=== PATIENT | male | born 1950 | race African-American/Black ===

== ENCOUNTER 2016-11-04 13:50 | Day surgery (SDC) | payer OTHER ==
[2016-11-01 18:40] VITALS: BMI 34.0
[~2016-11-04 13:50] MED LIST: ceFAZolin SODIUM 1 GM VIAL IVPB ONE
[2016-11-04] MEDS ORDERED: MIDAZOLAM HCL 2 MG/2 ML SINGLE DOSE VIAL ONE ×5 (16:00→16:22)
[2016-11-04] MEDS ORDERED: ceFAZolin SODIUM 1 GM VIAL IVPB ONE (16:15)
[2016-11-04] MEDS ORDERED: PROPOFOL 20 ML ONE (16:19)
[2016-11-04] MEDS ORDERED: LIDOCAINE 1%/EPI 1:100000 (20 ML MULTI DOSE VIAL) INF ONE (16:19)
[2016-11-04] MEDS ORDERED: LIDOCAINE HCL/PF 2% SDV 5ML VIAL ONE (16:19)
[2016-11-04] MEDS ORDERED: LIDOCAINE 1%/EPI 1:100000 (50 ML MULTI DOSE VIAL) ONE ×2 (16:19→16:23)
[2016-11-04] MEDS ORDERED: ceFAZolin SODIUM 1 GM VIAL ONE (16:20)
[2016-11-04] MEDS ORDERED: KETAMINE HCL 200 MG/20 ML VIAL ONE (17:01)
[2016-11-04] MEDS ORDERED: ESMOLOL HCL 10 ML ONE (17:11)
[2016-11-04] MEDS ORDERED: IBUPROFEN 800 MG/8 ML IJ IVPB PRN (17:39)
[2016-11-04] MEDS ORDERED: ACETAMINOPHEN 1000 MG/100 ML VIAL (NON FORMULARY) IVPB ONE (17:40)
[2016-11-04] MEDS ORDERED: DEXTROSE 5%-0.45% SALINE 1,000 ML IV SCH (17:45)
[2016-11-04] MEDS ORDERED: oxyCODONE HCL 5 MG TABLET PO PRN (17:50)
[2016-11-04] MEDS ORDERED: ONDANSETRON 4 MG/2 ML VIAL IVPUSH PRN (17:50)
[2016-11-04] MEDS ORDERED: LACTATED RINGERS SOLUTION 1,000 ML IV SCH (18:00)
[2016-11-04] MEDS ORDERED: ACETAMINOPHEN INJECTION 100 ML IVPB ONE (18:02)
[2016-11-04 18:30] VITALS: TEMP 98.4
[2016-11-04 19:50] VITALS: BP 105/63; PULSE 86
--- NOTE | 2016-11-07 09:34 | OP ---
DATE OF OPERATION: 11/04/2016 PREOPERATIVE DIAGNOSIS: Poorly functioning InterStim with urinary frequency and incontinence. POSTOPERATIVE DIAGNOSIS: Poorly functioning InterStim with urinary frequency and incontinence. PROCEDURE: Removal and replacement of InterStim battery and lead. SURGEON: Joaquín Izquierdo MD ANESTHESIA: Dr. Angulo IV SEDATION: Local. SPECIMEN: Old battery and leads. FINDINGS: S3 stimulation at low amplitude with toe deflection. DESCRIPTION OF PROCEDURE: The patient was brought to the OR, placed on the table in prone position. All pressure points were protected. The back was prepped and draped sterilely. The patient was given IV sedation. The battery pocket on the left side was opened, and the battery was taken out of the incision. The lead was identified, and dimpling of the lead in the midline was seen on the right paramedian. This was also opened with a knife, and the wire was grasped, rolled out, and removed en toto. These were sent off for pathological confirmation. Using fluoroscopy and bony landmarks, the S3 foramen were identified bilaterally, and needles were passed into them. The best response was on the right side with toe deflection and anal idalmis at low amplitude and evidence of calf rotation. This also appeared to be the right spot on the x-ray. Using Seldinger technique, the tract was dilated, and a quadruple lead was passed in through the sacral foramen on the right side under fluoroscopic guidance. Proper positioning of the lead was observed, and the lead was deployed. It was restimulated with good response at low amplitude in all 4 leads. This was then tunneled underneath the skin toward the pre-existing left battery pocket, and after irrigation with bacitracin under water, the battery was connected to the lead. Impedance was checked and noted to be normal. All incisions were closed in 2 layers using 3-0 Vicryl and 4-0 Monocryl. The wounds were dressed. The patient was woken up. Indra [id number]
--- NOTE | 2016-11-08 13:40 | PATH ---
Surgical Pathology Report Patient Name: MISTI STARK Med. Rec. #: [id number] /Age/Gender: 1950 (Age: 66) / M Account: [id number] Location: [facility] Taken: 11/04/2016 Received: 11/07/2016 Reported: 11/08/2016 Physicians: Joaquín Izquierdo M.D. 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 Electronically Signed Diaz cMgregor M.D. Gross Description Received without fixative, labeled "old interstim battery and lead" is a 5 x 4.3 x 0.5 cm richard metallic and clear plastic device labeled "Medtronic Interstim II SN [id number]" with an attached 40 cm in length Metallic electrode. No soft tissue is attached. No sections are submitted. The specimen is for gross examination only. AF/11/07/2016 final/11/07/2016
== END 2016-11-04 19:51 | disposition home or self-care (01) ==
LOC: JASU-SURG 13:50
PROVIDERS: ATTEND Urology
PROC: 0JH70BZ Insertion of Single Array Stimulator Generator into Back Subcutaneous Tissue and Fascia, Open Approach (ICD-10-PCS; 2016-11-04)
PROC: 01PY0MZ Removal of Neurostimulator Lead from Peripheral Nerve, Open Approach (ICD-10-PCS; 2016-11-04)
PROC: 01HY0MZ Insertion of Neurostimulator Lead into Peripheral Nerve, Open Approach (ICD-10-PCS; 2016-11-04)
PROC: 0JPT0MZ Removal of Stimulator Generator from Trunk Subcutaneous Tissue and Fascia, Open Approach (ICD-10-PCS; principal; 2016-11-04 16:00)
DX: T85.113A Breakdown (mechanical) of implanted electronic neurostimulator, generator, initial encounter (principal); N39.46 Mixed incontinence
CPT/HCPCS: 64581; 64590; C1767; C1778; 76000-TC; 88300-TC; 94760

== ENCOUNTER 2017-09-13 20:55 | Emergency (ER) | payer OTHER ==
[2017-09-13 21:24] VITALS: BP 120/74; PULSE 77; TEMP 99.1; BMI 34.1
--- NOTE | 2017-09-13 21:24 | PDOC ---
Rapid Medical Evaluation Time Seen by Provider: 09/13/17 21:20 Medical Evaluation: Allergies Allergy/AdvReac Type Severity Reaction Status Date / Time No Known Drug Allergies Allergy Verified 09/13/17 21:20 09/13/17 21:20 I have performed a brief in-person evaluation of the patient. The patient presents with a chief complaint of : pain in lower back radiating into buttocks and around to right lower abdomen 1- 2 weeks. Patient seen by pmd had xray, cat scan and ultrasound done with negative results. Also had labs that showed abnormal prostate labs. Denies injury fall or heavy lifting Taking acetaminophen with no relief of pain Pertinent physical exam findings. NAD unlabored breathing no mid spinal tenderness pain in right lumbar region I have ordered the following urinalysis, analgesia This patient will proceed to the ED for further evaluation. Discharge Disposition - Referrals Referrals: Trell Lopez MD [Primary Care Provider] - - Patient Instructions - Post Discharge Activity
[2017-09-13] MEDS ORDERED: CYCLOBENZAPRINE HCL 10 MG TABLET (FP) PO ONE (21:25)
[2017-09-13] MEDS ORDERED: ACETAMINOPHEN WITH CODEINE 300MG/30MG TABLET PO ONE (21:25)
[2017-09-13] MEDS ORDERED: ACETAMINOPHEN WITH CODEINE 300MG/30MG TABLET ONE (21:38)
[2017-09-13] MEDS ORDERED: CYCLOBENZAPRINE HCL 10 MG TABLET (FP) ONE (21:38)
[2017-09-13 21:39] LABS: URINE APPEARANCE CLEAR; URINE BILIRUBIN NEGATIVE (<2.0 mg/dL); URINE COLOR LTYELLOW; URINE GLUCOSE (UA) NEGATIVE (NEGATIVE); URINE KETONE NEGATIVE (NEGATIVE); URINE LEUK ESTERASE NEGATIVE (NEGATIVE); URINE NITRITE NEGATIVE (NEGATIVE); URINE UROBILINOGEN NEGATIVE mg/dL (0.2-1.0)
[2017-09-13 21:41] LABS: URINE PROTEIN 1+ (NEGATIVE)
[2017-09-13 21:42] LABS: URINE MUCUS RARE
--- NOTE | 2017-09-13 22:23 | PDOC ---
History of Present Illness - General Chief Complaint: Back Pain Stated Complaint: PAIN Time Seen by Provider: 09/13/17 21:20 - History of Present Illness Initial Comments: This is a 67-year-old male. Presents to the emergency room for evaluation of lower back pain with radiation into the right hip. He has a past medical history significant for hypertension diabetes and asthma as well as dyslipidemia. He describes his pain is achy. His pain is exacerbated with motion relieved with rest and radiation into the groin. He has no loss of bowel or bladder function. He does have a history of BPH possibly prostate cancer he is being worked up by urology and has an upcoming appointment. He has no other associated symptoms besides lower back pain with radiation into the right hip. 09/13/17 22:18 Past History - Past Medical History Allergies/Adverse Reactions: Allergies Allergy/AdvReac Type Severity Reaction Status Date / Time No Known Drug Allergies Allergy Verified 09/13/17 21:20 Home Medications: Ambulatory Orders Amlodipine Besylate [Norvasc -] 10 mg PO DAILY 08/07/12 Exenatide [Byetta] 5 mcg SQ BID 08/07/12 Losartan/Hydrochlorothiazide [Losartan-Hctz 100-25 mg Tab] 1 tab PO DAILY Metoprolol Succinate [Toprol XL -] 50 mg PO DAILY 08/07/12 metFORMIN HCL [Glucophage -] 500 mg PO BID 08/07/12 Aspirin [ASA -] 81 mg PO DAILY 04/08/13 Atorvastatin Ca [Lipitor] 1 tab PO DAILY 09/15/15 Ranitidine [Zantac -] 150 mg PO BID #0 tablet 09/16/15 Amox-Tr/K Cl [Augmentin 875-125mg Tablet -] 1 tab PO BID #14 tablet 11/04/16 Oxycodone HCl/Acetaminophen [Percocet 5-325 mg Tablet -] 1 tab PO Q4H PRN #10 tablet MDD 6 11/04/16 Anemia: No Asthma: No Cancer: No Cardiac Disorders: No CVA: No COPD: No CHF: No Dementia: No Diabetes: Yes GI Disorders: Yes (COLON POLYPS-ADENOMA) Disorders: Yes (BPH) HTN: Yes Hypercholesterolemia: Yes Liver Disease: No Seizures: No Thyroid Disease: No - Surgical History Abdominal Surgery: No Appendectomy: No Cardiac Surgery: No Cholecystectomy: No Lung Surgery: No Neurologic Surgery: No Orthopedic Surgery: No - Suicide/Smoking/Psychosocial Hx Smoking History: Never smoked Have you smoked in the past 12 months: No Information on smoking cessation initiated: No Hx Alcohol Use: Yes Drug/Substance Use Hx: No Substance Use Type: Alcohol Hx Substance Use Treatment: No Review of Systems - Review of Systems Musculoskeletal: Yes: Back Pain All Other Systems: Reviewed and Negative *Physical Exam - Vital Signs Last Vital Signs Temp Pulse Resp BP Pulse Ox 99.1 F 77 18 120/74 100 09/13/17 21:20 09/13/17 21:20 09/13/17 21:20 09/13/17 21:20 09/13/17 21:20 - Physical Exam Comments: GENERAL: The patient is awake, alert, and fully oriented, in no acute distress. HEAD: Normal with no signs of trauma. EYES: Pupils equal, round and reactive to light, extraocular movements intact, sclera anicteric, conjunctiva clear. ENT: Ears normal, nares patent, oropharynx clear without exudates. Moist mucous membranes. NECK: Normal range of motion, supple without lymphadenopathy, JVD, or masses. LUNGS: Breath sounds equal, clear to auscultation bilaterally. No wheezes, and no crackles. HEART: Regular rate and rhythm, normal S1 and S2 without murmur, rub or gallop. ABDOMEN: Soft, nontender, normoactive bowel sounds. No guarding, no rebound. No masses. EXTREMITIES: Normal range of motion, no edema. No clubbing or cyanosis. No cords, erythema, or tenderness. NEUROLOGICAL: Cranial nerves II through XII grossly intact. Normal speech, normal gait. PSYCH: Normal mood, normal affect. SKIN: Warm, Dry, normal turgor, no rashes or lesions noted. The lumbar spine is normal skin color and temperature with palpable right-sided Lumbar musculature spasm. He has a negative straight leg raise test bilaterally full passive range of motion of both hips with discomfort on the right. His discomfort with hip range of motion is in his back. His abdomen is completely benign. I suspect this is a lumbar radiculopathy. He does have a spinal stimulator which was removed. 09/13/17 22:19 ED Treatment Course - ADDITIONAL ORDERS Additional order review: Laboratory Results 09/13/17 21:27 Urine Color Ltyellow Urine Appearance Clear Urine pH 5.0 Ur Specific [place] 1.011 Urine Protein 1+ H Urine Glucose (UA) Negative Urine Ketones Negative Urine Blood Negative Urine Nitrite Negative Urine Bilirubin Negative Urine Urobilinogen Negative Ur Leukocyte Esterase Negative Urine WBC (Auto) 1 Urine RBC (Auto) None Urine Mucus Rare - Medications Given in the ED: ED Medications Discontinued Medications Generic Name Dose Route Start Last Admin Trade Name Michelle PRN Reason Stop Dose Admin Acetaminophen/Codeine Phosphate 1 tab 09/13/17 21:25 09/13/17 21:46 Tylenol # 3 - PO 09/13/17 21:26 1 tab ONCE ONE Administration Cyclobenzaprine HCl 5 mg 09/13/17 21:25 09/13/17 21:46 Flexeril - PO 09/13/17 21:26 5 mg ONCE ONE Administration Medical Decision Making - Medical Decision Making I have reviewed his old charts. He did have a spinal stimulator which was removed. I feel this is a lumbar radiculopathy possibly a femoral nerve distribution radiculopathy. I don't think there is anything acute going on. He doesn't have any evidence of kidney stone no CVA tenderness on exam reproducible lower back pain and tenderness on the right side of his lumbar spine around the paralumbar musculature. I feel he can be safely discharged home with close follow-up with his PCP as well as urology. He already is on an anti-inflammatory as well as trazodone for sleep I am hesitant to prescribe anything further. 09/13/17 22:20 *DC/Admit/Observation/Transfer Diagnosis at time of Disposition: Lower back pain - Discharge Dispostion Disposition: HOME Condition at time of disposition: Stable Decision to Admit order: No - Referrals Referrals: Trell Lopez MD [Primary Care Provider] - - Patient Instructions Printed Discharge Instructions: DI for Low Back Pain, Low Back Pain Additional Instructions: Please follow-up with your primary care provider as well as urology as scheduled in 1-2 days. Return to the emergency room if your symptoms worsen or go unresolved. I believe this is musculoskeletal pain and can be treated with an anti-inflammatory. I reviewed her medication list you're already on an anti- inflammatory. As well as medication for sleep. It's best fear doctor to prescribe U additional medication to treat her lower back pain. Muscle relaxers may may not be the best choice at this moment. - Post Discharge Activity
== END 2017-09-13 22:31 | disposition home or self-care (01) ==
LOC: JER 20:55 → JERFT 20:55
DX: M54.16 Radiculopathy, lumbar region (principal); J45.909 Unspecified asthma, uncomplicated; E78.00 Pure hypercholesterolemia, unspecified; E78.5 Hyperlipidemia, unspecified; E11.9 Type 2 diabetes mellitus without complications; Z79.84 Long term (current) use of oral hypoglycemic drugs
CPT/HCPCS: 81003; 81015; 87086; 99281-25

== ENCOUNTER 2020-09-03 21:47 | Emergency (ER) | payer OTHER ==
[2020-09-03 22:27] VITALS: BP 115/63; TEMP 98.4; BMI 23.0
[2020-09-03 22:44] LABS: BASO % 1.1 % (0-2.0); EOS % 1.1 % (0-4.5); HEMATOCRIT 32.7 % (35.4-49); HEMOGLOBIN 10.7 GM/dL (11.7-16.9); LYMPH % 35.5 % (8-40); MCHC 32.8 g/dl (32.0-35.9); MEAN CELL VOLUME 85.2 fl (80-96); MONO % 8.9 % (3.8-10.2); NEUT % 53.4 % (42.8-82.8); PLATELET COUNT 271 K/MM3 (134-434); RBC 3.84 M/mm3 (4.00-5.60); RDW 16.2 % (11.9-15.9); WHITE BLOOD COUNT 8.4 K/mm3 (4.0-10.0)
[2020-09-03 22:51] LABS: INR 1.09 (0.83-1.09); PROTHROMBIN TIME (PATIENT) 13.4 SEC (9.7-13.0)
[2020-09-03] MEDS ORDERED: DIPHTH,PERTUSS(ACELL),TET 0.5 ML DISP.SYRIN IM ONE ×2 (22:52→23:04)
[2020-09-03 23:07] LABS: URINE APPEARANCE CLEAR; URINE BILIRUBIN NEGATIVE (NEGATIVE); URINE COLOR YELLOW; URINE GLUCOSE (UA) NEGATIVE (NEGATIVE); URINE KETONE NEGATIVE (NEGATIVE); URINE LEUK ESTERASE NEGATIVE (NEGATIVE); URINE NITRITE NEGATIVE (NEGATIVE); URINE PROTEIN NEGATIVE (NEGATIVE); URINE UROBILINOGEN 0.2 mg/dL (0.2-1.0)
[2020-09-03 23:13] LABS: ALBUMIN 3.9 g/dl (3.4-5.0); ALK PHOS 108 U/L (45-117); ANION GAP 11 MMOL/L (8-16); BILIRUBIN,TOTAL 0.7 mg/dL (0.2-1); BLOOD UREA NITROGEN 30.1 mg/dL (7-18); CHLORIDE 102 mmol/L (98-107); CO2 20 mmol/L (21-32); CREATININE 1.8 mg/dL (0.55-1.3); GLUCOSE,RANDOM 112 mg/dL (74-106); SGOT/AST 22 U/L (15-37); SGPT/ALT 29 U/L (13-61); SODIUM 133 mmol/L (136-145); TOT PROT 7.1 g/dl (6.4-8.2)
[2020-09-03] MEDS ORDERED: LACTATED RINGERS SOLUTION 1,000 ML/1,000 ML INFUS.BAG IV STA (23:16)
[2020-09-03 23:20] LABS: METHADONE, UR NEGATIVE ng/ml (CUTOFF=300); OPIATES, URI NEGATIVE ng/ml (CUTOFF=300); URINE AMPHETAMINES NEGATIVE ng/ml (CUTOFF=500); URINE BARBITURATES NEGATIVE ng/ml (CUTOFF=200); URINE BENZODIAZEPINES NEGATIVE ng/ml (CUTOFF=200)
[2020-09-03 23:21] LABS: PHENCYCLIDINE,URINE NEGATIVE ng/ml (CUTOFF=25)
[2020-09-03 23:22] LABS: COCAINE, UR NEGATIVE ng/ml (CUTOFF=300)
[2020-09-04 00:11] VITALS: PULSE 79
== END 2020-09-04 00:11 | disposition home or self-care (01) ==
LOC: JER 21:47
PROC: 3E0234Z Introduction of Serum, Toxoid and Vaccine into Muscle, Percutaneous Approach (ICD-10-PCS; principal; 2020-09-03)
PROC: 3E0337Z Introduction of Electrolytic and Water Balance Substance into Peripheral Vein, Percutaneous Approach (ICD-10-PCS; 2020-09-03)
DX: F10.920 Alcohol use, unspecified with intoxication, uncomplicated (principal)
CPT/HCPCS: 36415; 70450-TC; 72125-TC; 80053; 80307; 81003; 82550; 82553; 84484; 85025; 85610; 85730; 90471; 90715; 99284-25

== ENCOUNTER 2021-09-27 05:07 | Day surgery (SDC) | payer OTHER ==
[2021-09-23 17:12] VITALS: BMI 31.4
[2021-09-27 15:09] VITALS: BP 129/78; PULSE 63; TEMP 97.8
== END 2021-09-27 15:38 | disposition home or self-care (01) ==
LOC: JRADIR 05:07
PROVIDERS: ATTEND Internal Medicine Hematology & Oncology
PROC: 0BBC3ZX Excision of Right Upper Lung Lobe, Percutaneous Approach, Diagnostic (ICD-10-PCS; principal; 2021-09-27)
DX: C34.11 Malignant neoplasm of upper lobe, right bronchus or lung (principal)
CPT/HCPCS: 32408; 71046-TC-FY; 88305-TC; 88341-TC; 88342-TC

== ENCOUNTER 2021-10-23 20:07 | Emergency (ER) | payer OTHER ==
[2021-10-23 20:12] VITALS: BP 115/75; PULSE 60; TEMP 98.1; BMI 29.7
[2021-10-23] MEDS ORDERED: SODIUM CHLORIDE 0.9% 500 ML INFUS.BAG IV ONE (21:22)
[2021-10-23 22:46] LABS: BASO % 0.5 % (0-2.0); EOS % 1.9 % (0-4.5); HEMATOCRIT 24.3 % (35.4-49); LYMPH % 19.6 % (8-40); MCH 25.9 pg (25.7-33.7); MCHC 32.8 g/dl (32.0-35.9); MEAN CELL VOLUME 78.9 fl (80-96); MEAN PLT VOLUME 8.3 fl (7.5-11.1); MONO % 13.5 % (3.8-10.2); NEUT % 64.5 % (42.8-82.8); PLATELET COUNT 365 10^3/uL (134-434); RBC 3.08 M/mm3 (4.00-5.60); RDW 16.8 % (11.9-15.9); WHITE BLOOD COUNT 8.8 K/mm3 (4.0-10.0)
[2021-10-23 23:11] LABS: ALBUMIN 3.4 g/dl (3.4-5.0); CALCIUM 8.7 mg/dL (8.5-10.1)
[2021-10-23 23:14] LABS: CREATININE 2.8 mg/dL (0.55-1.3)
[2021-10-23 23:16] LABS: BILIRUBIN,TOTAL 0.4 mg/dL (0.2-1); TOT PROT 7.8 g/dl (6.4-8.2)
[2021-10-23 23:22] LABS: EPI CELLS 4 /uL (0-25.1); HYALINE CASTS 1 /uL (0-3.1); URINE APPEARANCE CLEAR; URINE BACTERIA 5 /uL (0-1359); URINE BILIRUBIN NEGATIVE (NEGATIVE); URINE COLOR YELLOW; URINE GLUCOSE (UA) NEGATIVE (NEGATIVE); URINE KETONE NEGATIVE (NEGATIVE); URINE LEUK ESTERASE NEGATIVE (NEGATIVE); URINE NITRITE NEGATIVE (NEGATIVE); URINE PROTEIN TRACE (NEGATIVE); URINE RBC 13 /uL (0-23.9); URINE UROBILINOGEN 0.2 mg/dL (0.2-1.0); URINE WBC 8 /uL (0-25.8)
== END 2021-10-24 00:01 | disposition home or self-care (01) ==
LOC: JER 20:07
DX: R31.9 Hematuria, unspecified (principal); N18.9 Chronic kidney disease, unspecified
CPT/HCPCS: 36415; 80053; 81003; 85025; 86850; 86900; 86901; 87086; 99284-25

== ENCOUNTER 2021-11-08 08:40 | Day surgery (SDC) | payer OTHER ==
[2021-11-08] MEDS ORDERED: SODIUM CHLORIDE 250 ML IV ONE (09:00)
[2021-11-08 09:43] LABS: BASO % 0.6 % (0-2.0); EOS % 1.1 % (0-4.5); HEMATOCRIT 29.1 % (35.4-49); HEMOGLOBIN 9.2 GM/dL (11.7-16.9); LYMPH % 15.9 % (8-40); MCH 24.7 pg (25.7-33.7); MCHC 31.6 g/dl (32.0-35.9); MEAN CELL VOLUME 78.2 fl (80-96); MEAN PLT VOLUME 8.5 fl (7.5-11.1); MONO % 11.4 % (3.8-10.2); PLATELET COUNT 397 10^3/uL (134-434); RBC 3.73 M/mm3 (4.00-5.60); WHITE BLOOD COUNT 8.9 K/mm3 (4.0-10.0)
[2021-11-08] MEDS ORDERED: PEMBROLIZUMAB 200 MG in SODIUM CHLORIDE 100 ML IV ONE (10:00)
[2021-11-08 10:02] LABS: BLOOD UREA NITROGEN 35.4 mg/dL (7-18); CALCIUM 8.8 mg/dL (8.5-10.1)
[2021-11-08 10:03] LABS: ALBUMIN 3.2 g/dl (3.4-5.0)
[2021-11-08 10:04] LABS: BILIRUBIN,DIRECT 0.1 mg/dL (0.0-0.2)
[2021-11-08 10:05] LABS: CREATININE 2.1 mg/dL (0.55-1.3)
[2021-11-08 10:06] LABS: TOT PROT 7.4 g/dl (6.4-8.2)
[2021-11-08 10:07] LABS: BILIRUBIN,TOTAL 0.3 mg/dL (0.2-1)
[2021-11-08 16:38] VITALS: RESP 20; TEMP 98.5
[2021-11-08 16:49] VITALS: BP 140/77; PULSE 58
== END 2021-11-08 12:40 | disposition home or self-care (01) ==
LOC: JONCCHEMO 08:40
PROVIDERS: ATTEND Internal Medicine Hematology & Oncology
DX: Z51.11 Encounter for antineoplastic chemotherapy (principal); C64.1 Malignant neoplasm of right kidney, except renal pelvis; C34.11 Malignant neoplasm of upper lobe, right bronchus or lung
CPT/HCPCS: 36415; 80048; 80076; 82150; 82533; 83690; 83735; 84439; 84443; 85025; 96361; 96413; J9271

== ENCOUNTER 2021-11-30 10:28 | Emergency (ER) | payer OTHER ==
[2021-11-30 10:35] VITALS: BMI 29.3
[2021-11-30] MEDS ORDERED: SODIUM CHLORIDE 0.9% 500 ML INFUS.BAG IV ONE (11:01)
[2021-11-30] MEDS ORDERED: ACETAMINOPHEN 325 MG TABLET (FP) PO ONE (11:01)
[2021-11-30] MEDS ORDERED: ACETAMINOPHEN 325 MG TABLET (FP) ONE (11:20)
[2021-11-30 11:46] LABS: BASO % 0.8 % (0-2.0); EOS % 0.7 % (0-4.5); HEMATOCRIT 28.7 % (35.4-49); HEMOGLOBIN 9.3 GM/dL (11.7-16.9); LYMPH % 5.5 % (8-40); MCH 25.5 pg (25.7-33.7); MCHC 32.5 g/dl (32.0-35.9); MEAN CELL VOLUME 78.5 fl (80-96); MEAN PLT VOLUME 8.7 fl (7.5-11.1); MONO % 8.4 % (3.8-10.2); NEUT % 84.6 % (42.8-82.8); PLATELET COUNT 273 10^3/uL (134-434); RBC 3.65 M/mm3 (4.00-5.60); RDW 18.4 % (11.9-15.9); WHITE BLOOD COUNT 9.3 K/mm3 (4.0-10.0)
[2021-11-30 12:11] LABS: CALCIUM 8.4 mg/dL (8.5-10.1)
[2021-11-30 12:12] LABS: ALBUMIN 3.4 g/dl (3.4-5.0); BLOOD UREA NITROGEN 29.6 mg/dL (7-18); MAGNESIUM 1.7 mg/dL (1.8-2.4)
[2021-11-30 12:17] LABS: BILIRUBIN,TOTAL 0.5 mg/dL (0.2-1); TOT PROT 7.4 g/dl (6.4-8.2)
[2021-11-30] MEDS ORDERED: BEBTELOVIMAB (EUA) 175 MG/2 ML VIAL IVPUSH ONE (12:53)
[2021-11-30 15:47] VITALS: BP 150/72; PULSE 92; RESP 20; TEMP 98.5
== END 2021-11-30 15:48 | disposition home or self-care (01) ==
LOC: JER 10:28
DX: U07.1 COVID-19 (principal)
CPT/HCPCS: 0241U-QW; 36415; 71045-TC-FY; 80053; 83735; 84484; 85025; 93005; 93010; 99284-25; M0222; Q0222

== ENCOUNTER 2021-12-07 08:12 | Day surgery (SDC) | payer OTHER ==
[2021-12-07 09:30] LABS: BASO % 0.7 % (0-2.0); EOS % 2.1 % (0-4.5); HEMOGLOBIN 9.4 GM/dL (11.7-16.9); LYMPH % 23.1 % (8-40); MCH 25.3 pg (25.7-33.7); MCHC 32.4 g/dl (32.0-35.9); MEAN CELL VOLUME 78.2 fl (80-96); MEAN PLT VOLUME 8.3 fl (7.5-11.1); MONO % 11.2 % (3.8-10.2); NEUT % 62.9 % (42.8-82.8); PLATELET COUNT 301 10^3/uL (134-434); RBC 3.71 M/mm3 (4.00-5.60); RDW 18.2 % (11.9-15.9); WHITE BLOOD COUNT 6.5 K/mm3 (4.0-10.0)
[2021-12-07 09:57] LABS: ALBUMIN 3.3 g/dl (3.4-5.0); BLOOD UREA NITROGEN 35.8 mg/dL (7-18); CALCIUM 8.6 mg/dL (8.5-10.1); MAGNESIUM 1.8 mg/dL (1.8-2.4)
[2021-12-07 09:59] LABS: BILIRUBIN,DIRECT 0.1 mg/dL (0.0-0.2)
[2021-12-07] MEDS ORDERED: IRON SUCROSE INJECTION 200 MG in SODIUM CHLORIDE 100 ML IVPB ONE (10:00)
[2021-12-07] MEDS ORDERED: EPOETIN ALFA-EPBX 10,000 UNIT, EPOETIN ALFA-EPBX 2,000 UNIT, EPOETIN ALFA-EPBX 3,000 UNIT SQ ONE (10:00)
[2021-12-07 10:01] LABS: BILIRUBIN,TOTAL 0.3 mg/dL (0.2-1); TOT PROT 7.1 g/dl (6.4-8.2)
[2021-12-07 10:04] VITALS: TEMP 98.6
[2021-12-07] MEDS ORDERED: PEMBROLIZUMAB 200 MG in SODIUM CHLORIDE 100 ML IV ONE (10:30)
[2021-12-07 14:38] VITALS: BP 129/73; PULSE 60; RESP 18
== END 2021-12-07 15:46 | disposition home or self-care (01) ==
LOC: JONCCHEMO 08:12
PROVIDERS: ATTEND Internal Medicine Hematology & Oncology
PROC: 3E03305 Introduction of Other Antineoplastic into Peripheral Vein, Percutaneous Approach (ICD-10-PCS; principal; 2021-12-07)
PROC: 3E013GC Introduction of Other Therapeutic Substance into Subcutaneous Tissue, Percutaneous Approach (ICD-10-PCS; 2021-12-07)
DX: Z51.11 Encounter for antineoplastic chemotherapy (principal); C64.1 Malignant neoplasm of right kidney, except renal pelvis; C34.11 Malignant neoplasm of upper lobe, right bronchus or lung
CPT/HCPCS: 36415; 80048; 80076; 82150; 82533; 83690; 83735; 84439; 84443; 85025; 96367; 96372; 96413; J1756; J9271; Q5106

== ENCOUNTER 2021-12-25 05:18 | Observation (INO) | payer OTHER ==
[2021-12-25 05:36] VITALS: BMI 29.0
[2021-12-25] MEDS ORDERED: LACTATED RINGERS SOLUTION 1000 ML INFUS.BAG IV ONE (05:48)
[2021-12-25 06:29] LABS: BASO % 0.5 % (0-2.0); EOS % 0.6 % (0-4.5); HEMOGLOBIN 8.7 GM/dL (11.7-16.9); LYMPH % 15.5 % (8-40); MCHC 31.3 g/dl (32.0-35.9); MEAN CELL VOLUME 79.9 fl (80-96); MONO % 15.5 % (3.8-10.2); NEUT % 67.9 % (42.8-82.8); PLATELET COUNT 315 10^3/uL (134-434); RDW 19.1 % (11.9-15.9); WHITE BLOOD COUNT 9.1 K/mm3 (4.0-10.0)
[2021-12-25 06:56] LABS: CALCIUM 8.6 mg/dL (8.5-10.1)
[2021-12-25 06:57] LABS: BLOOD UREA NITROGEN 36.1 mg/dL (7-18); MAGNESIUM 1.8 mg/dL (1.8-2.4)
[2021-12-25 07:00] LABS: PHOSPHOROUS 2.3 mg/dL (2.5-4.9)
[2021-12-25 07:01] LABS: BILIRUBIN,TOTAL 0.4 mg/dL (0.2-1)
[2021-12-25] MEDS: DEXTROSE 5%-0.45% SALINE 1,000 ML IV SCH ×2 (09:35→18:57)
[2021-12-25] MEDS ORDERED: DEXAMETHASONE SOD PHOSPHATE 4 MG/1 ML VIAL IVPUSH ONE (10:07)
[2021-12-25] MEDS ORDERED: DEXAMETHASONE SOD PHOSPHATE 4 MG/1 ML VIAL ONE (10:09)
[2021-12-25] MEDS ORDERED: ACETAMINOPHEN 325 MG TABLET (FP) PO PRN (12:42)
[2021-12-25] MEDS ORDERED: ONDANSETRON 4 MG/2 ML VIAL IVPUSH PRN (12:42)
[2021-12-25] MEDS ORDERED: D5-NS + 20 MEQ KCL - 20 MEQ/1,000 ML INFUS.BAG IV SCH (12:45)
[2021-12-25 18:05] VITALS: RESP 18
[2021-12-26 09:47] LABS: BASO % 0.5 % (0-2.0); EOS % 0.5 % (0-4.5); HEMATOCRIT 29.2 % (35.4-49); HEMOGLOBIN 9.4 GM/dL (11.7-16.9); LYMPH % 16.6 % (8-40); MCH 25.7 pg (25.7-33.7); MCHC 32.2 g/dl (32.0-35.9); MEAN CELL VOLUME 79.8 fl (80-96); MEAN PLT VOLUME 8.7 fl (7.5-11.1); MONO % 10.8 % (3.8-10.2); NEUT % 71.6 % (42.8-82.8); PLATELET COUNT 310 10^3/uL (134-434); RBC 3.66 M/mm3 (4.00-5.60); RDW 19.5 % (11.9-15.9)
[2021-12-26] MEDS ORDERED: PANTOPRAZOLE SODIUM 40 MG VIAL IVPUSH SCH (10:00)
[2021-12-26 10:09] LABS: ALBUMIN 2.8 g/dl (3.4-5.0); CALCIUM 8.7 mg/dL (8.5-10.1); MAGNESIUM 1.7 mg/dL (1.8-2.4)
[2021-12-26 10:13] LABS: CREATININE 1.6 mg/dL (0.55-1.3)
[2021-12-26 10:14] LABS: BILIRUBIN,TOTAL 0.3 mg/dL (0.2-1); TOT PROT 7.1 g/dl (6.4-8.2)
[2021-12-26] MEDS ORDERED: MAGNESIUM OXIDE 400 MG TABLET (FP) PO ONE (11:59)
[2021-12-26 15:29] VITALS: BP 122/65; PULSE 76; TEMP 97.7
== END 2021-12-26 13:53 | disposition home or self-care (01) ==
LOC: JER 05:18 → JERBED 10:16 → J5S 12:32
PROVIDERS: ADMIT Internal Medicine; ATTEND Nurse Practitioner Acute Care
PROC: 3E033GC Introduction of Other Therapeutic Substance into Peripheral Vein, Percutaneous Approach (ICD-10-PCS; principal; 2021-12-25)
DX: R19.7 Diarrhea, unspecified (principal); R11.2 Nausea with vomiting, unspecified; E11.22 Type 2 diabetes mellitus with diabetic chronic kidney disease; I12.9 Hypertensive chronic kidney disease with stage 1 through stage 4 chronic kidney disease, or unspecified chronic kidney disease; N18.30 Chronic kidney disease, stage 3 unspecified; E78.5 Hyperlipidemia, unspecified; C64.9 Malignant neoplasm of unspecified kidney, except renal pelvis; C78.00 Secondary malignant neoplasm of unspecified lung; R94.5 Abnormal results of liver function studies; E86.0 Dehydration; Z79.82 Long term (current) use of aspirin; Z86.19 Personal history of other infectious and parasitic diseases
CPT/HCPCS: 0241U-QW; 36415; 71045-TC-FY; 76705-TC; 80053; 83605; 83690; 83735; 84100; 85025; 87045; 87046; 87205; 87324; 87449; 93005; 93010; 96365; 99285-25; G0378

== ENCOUNTER 2022-01-28 19:50 | Inpatient (IN) | payer OTHER ==
[2022-01-28] MEDS ORDERED: ONDANSETRON 4 MG/2 ML VIAL IVPUSH ONE (20:31)
[2022-01-28] MEDS ORDERED: morphine CARPU-JECT 4 MG/1 ML DISP.SYRIN IVPUSH ONE (20:31)
[2022-01-28] MEDS ORDERED: ONDANSETRON 4 MG/2 ML VIAL ONE (20:42)
[2022-01-28] MEDS ORDERED: morphine SULFATE 4 MG/ML VIAL ONE (20:44)
[2022-01-28 21:13] LABS: BASO % 0.1 % (0-2.0); EPI CELLS 2 /uL (0-25.1); HEMATOCRIT 31.4 % (35.4-49); HEMOGLOBIN 9.8 GM/dL (11.7-16.9); HYALINE CASTS 1 /uL (0-3.1); LYMPH % 1.2 % (8-40); MCH 25.6 pg (25.7-33.7); MCHC 31.3 g/dl (32.0-35.9); MEAN CELL VOLUME 81.7 fl (80-96); MEAN PLT VOLUME 10.7 fl (7.5-11.1); NEUT % 94.7 % (42.8-82.8); PH,URINE 5.5 (5.0-8.0); PLATELET COUNT 139 10^3/uL (134-434); RBC 3.84 M/mm3 (4.00-5.60); RDW 22.3 % (11.9-15.9); URINE APPEARANCE CLEAR; URINE BACTERIA 2 /uL (0-1359); URINE BILIRUBIN NEGATIVE (NEGATIVE); URINE COLOR YELLOW; URINE GLUCOSE (UA) 1+ (NEGATIVE); URINE KETONE NEGATIVE (NEGATIVE); URINE LEUK ESTERASE NEGATIVE (NEGATIVE); URINE NITRITE NEGATIVE (NEGATIVE); URINE PROTEIN 1+ (NEGATIVE); URINE RBC 245 /uL (0-23.9); URINE UROBILINOGEN 0.2 mg/dL (0.2-1.0); URINE WBC 9 /uL (0-25.8)
[2022-01-28 21:27] LABS: ALBUMIN 3.2 g/dl (3.4-5.0); BLOOD UREA NITROGEN 70.6 mg/dL (7-18); CALCIUM 8.2 mg/dL (8.5-10.1)
[2022-01-28 21:30] LABS: CREATININE 2.5 mg/dL (0.55-1.3)
[2022-01-28 21:31] LABS: BILIRUBIN,TOTAL 0.4 mg/dL (0.2-1)
[2022-01-28 21:32] LABS: TOT PROT 6.3 g/dl (6.4-8.2)
[2022-01-28 22:39] LABS: ANISOCYTOSIS 2+; MACROCYTOSIS 0; OVALOCYTE 1+
[2022-01-28] MEDS ORDERED: CEFTRIAXONE 1 GM in DEXTROSE 5%-WATER - 100 ML IVPB ONE (23:06)
[2022-01-28] MEDS ORDERED: AZITHROMYCIN IVPB 500 MG in DEXTROSE 5%-WATER - 250 ML IVPB ONE (23:06)
[2022-01-29] MEDS ORDERED: morphine CARPU-JECT 4 MG/1 ML DISP.SYRIN IVPUSH ONE (00:58)
[2022-01-29] MEDS ORDERED: LACTATED RINGERS SOLUTION 1000 ML INFUS.BAG IV ONE (00:58)
[2022-01-29] MEDS ORDERED: morphine SULFATE 4 MG/ML VIAL ONE (01:02)
[2022-01-29] MEDS ORDERED: AZITHROMYCIN IVPB 500 MG/250 ML BAG IVPB ONE (01:02)
[2022-01-29] MEDS ORDERED: CEFTRIAXONE 1 GM/50 ML BAG ONE (01:02)
[2022-01-29] MEDS ORDERED: amLODIPine BESYLATE 5 MG TABLET (FP) PO ONE (03:30)
[2022-01-29] MEDS ORDERED: SODIUM CHLORIDE 1,000 ML IV SCH (03:45)
[2022-01-29] MEDS ORDERED: hydrALAZINE HCL 50 MG TABLET (FP) PO ONE (04:04)
[2022-01-29] MEDS ORDERED: SODIUM ZIRCONIUM CYCLOSILICATE (LOKELMA) 5 GM PACKET PO ONE (04:06)
[2022-01-29] MEDS ORDERED: INSULIN REGULAR HUMAN 100 UNITS/ML *VIAL IVPUSH ONE (04:11)
[2022-01-29] MEDS ORDERED: DEXTROSE 50%-WATER - 25 GM/50 ML VIAL IVPUSH ONE (04:12)
[2022-01-29 04:45] VITALS: BMI 32.9
[2022-01-29] MEDS ORDERED: amLODIPine BESYLATE 10 MG TABLET (FP) PO ONE (06:10)
[2022-01-29] MEDS: HEPARIN NA (PORCINE) 5,000 UNITS/ML 1ML VIAL SQ SCH ×3 (07:05→22:09)
[2022-01-29 07:08] LABS: CHLORIDE 106 mmol/L (98-107); SODIUM 136 mmol/L (136-145)
[2022-01-29 07:09] LABS: CALCIUM 8.1 mg/dL (8.5-10.1)
[2022-01-29 07:10] LABS: ALBUMIN 2.8 g/dl (3.4-5.0); BLOOD UREA NITROGEN 65.1 mg/dL (7-18); CO2 21 mmol/L (21-32); GLUCOSE,RANDOM 249 mg/dL (74-106)
[2022-01-29 07:13] LABS: BILIRUBIN,DIRECT 0.1 mg/dL (0.0-0.2); PHOSPHOROUS 3.6 mg/dL (2.5-4.9)
[2022-01-29 07:15] LABS: BILIRUBIN,TOTAL 0.4 mg/dL (0.2-1); CREATININE 2.1 mg/dL (0.55-1.3); IRON SERUM 27 ug/dL (50-175); SGOT/AST 33 U/L (15-37); SGPT/ALT 107 U/L (13-61); TOTAL IRON BINDING CAPACITY 178 ug/dL (250-450)
[2022-01-29 07:16] LABS: TOT PROT 5.7 g/dl (6.4-8.2)
[2022-01-29 07:20] LABS: ALK PHOS 253 U/L (45-117); ANION GAP 9 MMOL/L (8-16)
[2022-01-29 09:40] LABS: HEMATOCRIT 31.2 % (35.4-49); HEMOGLOBIN 9.5 GM/dL (11.7-16.9); MCH 24.8 pg (25.7-33.7); MCHC 30.4 g/dl (32.0-35.9); MEAN CELL VOLUME 81.3 fl (80-96); PLATELET COUNT 131 10^3/uL (134-434); RBC 3.84 M/mm3 (4.00-5.60); RDW 21.9 % (11.9-15.9); WHITE BLOOD COUNT 20.1 K/mm3 (4.0-10.0)
[2022-01-29 09:45] LABS: EPI CELLS 1 /uL (0-25.1); HYALINE CASTS 0 /uL (0-3.1); URINE APPEARANCE CLEAR; URINE BACTERIA 0 /uL (0-1359); URINE BILIRUBIN NEGATIVE (NEGATIVE); URINE COLOR YELLOW; URINE GLUCOSE (UA) NEGATIVE (NEGATIVE); URINE KETONE NEGATIVE (NEGATIVE); URINE LEUK ESTERASE NEGATIVE (NEGATIVE); URINE NITRITE NEGATIVE (NEGATIVE); URINE PROTEIN 1+ (NEGATIVE); URINE RBC 279 /uL (0-23.9); URINE UROBILINOGEN 0.2 mg/dL (0.2-1.0); URINE WBC 4 /uL (0-25.8)
[2022-01-29] MEDS ORDERED: SODIUM ZIRCONIUM CYCLOSILICATE (LOKELMA) 5 GM PACKET PO SCH (10:00)
[2022-01-29] MEDS: predniSONE 20 MG TABLET (UD) PO SCH ×2 (14:35→22:09)
[2022-01-29 16:31] LABS: BLOOD UREA NITROGEN 61.1 mg/dL (7-18)
[2022-01-29 16:34] LABS: CREATININE 2.2 mg/dL (0.55-1.3)
[2022-01-29] MEDS: INSULIN SLIDING SCALE (NOVOLOG) 1 VIAL SQ SCH (17:15)
[2022-01-29] MEDS: SODIUM CHLORIDE 1,000 ML IV SCH (17:16)
[2022-01-29] MEDS: SODIUM ZIRCONIUM CYCLOSILICATE (LOKELMA) 5 GM PACKET PO SCH (17:19)
[2022-01-30] MEDS: SODIUM CHLORIDE 1,000 ML IV SCH (01:18)
[2022-01-30] MEDS: predniSONE 20 MG TABLET (UD) PO SCH ×3 (06:14→22:59)
[2022-01-30] MEDS: HEPARIN NA (PORCINE) 5,000 UNITS/ML 1ML VIAL SQ SCH ×3 (06:14→22:59)
[2022-01-30] MEDS: INSULIN SLIDING SCALE (NOVOLOG) 1 VIAL SQ SCH ×3 (06:16→17:16)
[2022-01-30] MEDS: FAMOTIDINE 20 MG TABLET PO SCH (09:54)
[2022-01-30] MEDS: CEFTRIAXONE 1 GM in DEXTROSE 5%-WATER - 50 ML IVPB SCH (09:54)
[2022-01-30] MEDS: ASPIRIN 81 MG CHEWABLE TABLETS PO SCH (09:54)
[2022-01-30] MEDS ORDERED: AZITHROMYCIN IVPB 250 MG in DEXTROSE 5%-WATER - 250 ML IVPB SCH (10:00)
[2022-01-30] MEDS: SODIUM ZIRCONIUM CYCLOSILICATE (LOKELMA) 5 GM PACKET PO SCH (12:02)
[2022-01-30 13:30] LABS: HEMATOCRIT 29.8 % (35.4-49); HEMOGLOBIN 9.1 GM/dL (11.7-16.9); MCH 24.9 pg (25.7-33.7); MCHC 30.6 g/dl (32.0-35.9); MEAN CELL VOLUME 81.6 fl (80-96); MEAN PLT VOLUME 11.5 fl (7.5-11.1); PLATELET COUNT 108 10^3/uL (134-434); RBC 3.65 M/mm3 (4.00-5.60); WHITE BLOOD COUNT 16.2 K/mm3 (4.0-10.0)
[2022-01-30 13:40] LABS: CALCIUM 7.9 mg/dL (8.5-10.1)
[2022-01-30 13:41] LABS: ALBUMIN 2.2 g/dl (3.4-5.0); BLOOD UREA NITROGEN 62.3 mg/dL (7-18)
[2022-01-30 13:43] LABS: CREATININE 2.1 mg/dL (0.55-1.3)
[2022-01-30 13:45] LABS: BILIRUBIN,TOTAL 0.3 mg/dL (0.2-1); TOT PROT 4.8 g/dl (6.4-8.2)
[2022-01-30] MEDS ORDERED: FUROSEMIDE 40 MG/4 ML INJECTABLE VIAL IVPUSH ONE (13:45)
[2022-01-30] MEDS ORDERED: SENNOSIDES 8.6MG TABLET (FP) PO PRN (13:45)
[2022-01-30] MEDS ORDERED: DOCUSATE SODIUM 100 MG CAPSULE (FP) PO PRN (13:45)
[2022-01-30 14:38] LABS: ANISOCYTOSIS 2+; MACROCYTOSIS 0; OVALOCYTE 1+; TARGET CELLS 2+
[2022-01-31] MEDS: predniSONE 20 MG TABLET (UD) PO SCH ×3 (06:03→21:36)
[2022-01-31] MEDS: HEPARIN NA (PORCINE) 5,000 UNITS/ML 1ML VIAL SQ SCH ×3 (06:03→21:36)
[2022-01-31] MEDS: INSULIN SLIDING SCALE (NOVOLOG) 1 VIAL SQ SCH ×3 (06:54→17:23)
[2022-01-31] MEDS: SODIUM ZIRCONIUM CYCLOSILICATE (LOKELMA) 5 GM PACKET PO SCH (10:39)
[2022-01-31] MEDS: CEFTRIAXONE 1 GM in DEXTROSE 5%-WATER - 50 ML IVPB SCH (10:39)
[2022-01-31] MEDS: FAMOTIDINE 20 MG TABLET PO SCH (10:39)
[2022-01-31] MEDS: ASPIRIN 81 MG CHEWABLE TABLETS PO SCH (10:39)
[2022-01-31 12:27] LABS: BLOOD UREA NITROGEN 68.3 mg/dL (7-18); CALCIUM 8.2 mg/dL (8.5-10.1)
[2022-01-31 12:30] LABS: CREATININE 2.4 mg/dL (0.55-1.3)
[2022-01-31 12:49] LABS: HEMATOCRIT 27.2 % (35.4-49); HEMOGLOBIN 8.6 GM/dL (11.7-16.9); MCH 25.4 pg (25.7-33.7); MCHC 31.5 g/dl (32.0-35.9); MEAN CELL VOLUME 80.4 fl (80-96); MEAN PLT VOLUME 10.9 fl (7.5-11.1); PLATELET COUNT 92 10^3/uL (134-434); RBC 3.39 M/mm3 (4.00-5.60); RDW 22.2 % (11.9-15.9); WHITE BLOOD COUNT 14.8 K/mm3 (4.0-10.0)
[2022-01-31 13:33] LABS: ANISOCYTOSIS 2+; MACROCYTOSIS 0; OVALOCYTE 1+; TEAR DROP CELLS 1+
[2022-01-31] MEDS ORDERED: FUROSEMIDE 40 MG/4 ML INJECTABLE VIAL IVPUSH ONE (13:51)
[2022-02-01] MEDS: predniSONE 20 MG TABLET (UD) PO SCH ×3 (05:44→22:19)
[2022-02-01] MEDS: HEPARIN NA (PORCINE) 5,000 UNITS/ML 1ML VIAL SQ SCH ×3 (05:44→22:18)
[2022-02-01] MEDS: INSULIN SLIDING SCALE (NOVOLOG) 1 VIAL SQ SCH ×5 (06:11→23:10)
[2022-02-01 11:00] LABS: BASO % 0.1 % (0-2.0); EOS % 0.1 % (0-4.5); HEMATOCRIT 32.2 % (35.4-49); HEMOGLOBIN 9.6 GM/dL (11.7-16.9); LYMPH % 1.9 % (8-40); MCH 24.7 pg (25.7-33.7); MEAN CELL VOLUME 82.3 fl (80-96); MEAN PLT VOLUME 11.6 fl (7.5-11.1); MONO % 6.5 % (3.8-10.2); NEUT % 91.4 % (42.8-82.8); PLATELET COUNT 120 10^3/uL (134-434); RBC 3.91 M/mm3 (4.00-5.60); RDW 22.6 % (11.9-15.9); WHITE BLOOD COUNT 14.6 K/mm3 (4.0-10.0)
[2022-02-01] MEDS ORDERED: FUROSEMIDE 40 MG/4 ML INJECTABLE VIAL IVPUSH ONE (11:06)
[2022-02-01 11:18] LABS: CHLORIDE 105 mmol/L (98-107); SODIUM 135 mmol/L (136-145)
[2022-02-01 11:25] LABS: CALCIUM 8.2 mg/dL (8.5-10.1)
[2022-02-01 11:26] LABS: ALBUMIN 2.4 g/dl (3.4-5.0); BLOOD UREA NITROGEN 72.1 mg/dL (7-18); CO2 19 mmol/L (21-32); CREATININE 2.4 mg/dL (0.55-1.3); SGPT/ALT 76 U/L (13-61)
[2022-02-01 11:28] LABS: BILIRUBIN,TOTAL 0.4 mg/dL (0.2-1); TOT PROT 5.8 g/dl (6.4-8.2)
[2022-02-01 11:29] LABS: GLUCOSE,RANDOM 297 mg/dL (74-106); SGOT/AST 28 U/L (15-37)
[2022-02-01 11:34] LABS: ALK PHOS 220 U/L (45-117); ANION GAP 12 MMOL/L (8-16)
[2022-02-01] MEDS: FAMOTIDINE 20 MG TABLET PO SCH (11:41)
[2022-02-01] MEDS: CEFTRIAXONE 1 GM in DEXTROSE 5%-WATER - 50 ML IVPB SCH (11:41)
[2022-02-01] MEDS: ASPIRIN 81 MG CHEWABLE TABLETS PO SCH (11:41)
[2022-02-01] MEDS: SODIUM ZIRCONIUM CYCLOSILICATE (LOKELMA) 5 GM PACKET PO SCH (11:42)
[2022-02-01 12:00] LABS: ANISOCYTOSIS 2+; MACROCYTOSIS 2+
[2022-02-01] MEDS ORDERED: SODIUM ZIRCONIUM CYCLOSILICATE (LOKELMA) 5 GM PACKET PO ONE (12:00)
[2022-02-01] MEDS ORDERED: INSULIN (LEVEMIR) 100 UNITS/ML UNITS SQ SCH (22:00)
[2022-02-01 23:51] LABS: GLUCOSE,RANDOM 483 mg/dL (74-106)
[2022-02-02] MEDS: HEPARIN NA (PORCINE) 5,000 UNITS/ML 1ML VIAL SQ SCH ×2 (05:59→14:26)
[2022-02-02] MEDS: predniSONE 20 MG TABLET (UD) PO SCH ×2 (05:59→14:26)
[2022-02-02] MEDS: INSULIN SLIDING SCALE (NOVOLOG) 1 VIAL SQ SCH ×2 (06:22→12:55)
[2022-02-02 09:46] VITALS: RESP 18
[2022-02-02] MEDS: FAMOTIDINE 20 MG TABLET PO SCH (09:47)
[2022-02-02] MEDS: ASPIRIN 81 MG CHEWABLE TABLETS PO SCH (09:47)
[2022-02-02] MEDS: CEFTRIAXONE 1 GM in DEXTROSE 5%-WATER - 50 ML IVPB SCH (09:47)
[2022-02-02] MEDS: SODIUM ZIRCONIUM CYCLOSILICATE (LOKELMA) 5 GM PACKET PO SCH (09:47)
[2022-02-02 10:35] LABS: HEMATOCRIT 29.8 % (35.4-49); HEMOGLOBIN 9.5 GM/dL (11.7-16.9); MCH 25.7 pg (25.7-33.7); MCHC 31.8 g/dl (32.0-35.9); MEAN CELL VOLUME 80.7 fl (80-96); MEAN PLT VOLUME 10.5 fl (7.5-11.1); PLATELET COUNT 130 10^3/uL (134-434); RBC 3.69 M/mm3 (4.00-5.60); RDW 22.3 % (11.9-15.9); WHITE BLOOD COUNT 12.3 K/mm3 (4.0-10.0)
[2022-02-02 11:09] LABS: ALBUMIN 2.7 g/dl (3.4-5.0); BLOOD UREA NITROGEN 68.8 mg/dL (7-18); CALCIUM 8.5 mg/dL (8.5-10.1)
[2022-02-02 11:12] LABS: CREATININE 2.4 mg/dL (0.55-1.3)
[2022-02-02 11:13] LABS: BILIRUBIN,TOTAL 0.4 mg/dL (0.2-1); TOT PROT 5.9 g/dl (6.4-8.2)
[2022-02-02 11:27] LABS: ANISOCYTOSIS 2+; MACROCYTOSIS 0; OVALOCYTE 2+
[2022-02-02] MEDS ORDERED: TRIAMTERENE AND HCTZ - 37.5 MG/25 MG CAPSULE PO ONE (14:15)
[2022-02-02] MEDS ORDERED: FUROSEMIDE 40 MG/4 ML INJECTABLE VIAL IVPB SCH (15:00)
[2022-02-02] MEDS ORDERED: FUROSEMIDE 100 MG/10 ML INJECTABLE VIAL IVPB SCH (15:00)
[2022-02-02 15:05] VITALS: BP 101/54; PULSE 71; TEMP 97.6
== END 2022-02-02 16:15 | disposition home or self-care (01) | DRG 687 ==
LOC: JER 19:50 → JERBED 01-29 01:35 → J5S 01-29 05:48
PROVIDERS: ADMIT Internal Medicine; ATTEND Internal Medicine
DX: C64.1 Malignant neoplasm of right kidney, except renal pelvis (principal); C78.00 Secondary malignant neoplasm of unspecified lung; N17.9 Acute kidney failure, unspecified; R10.11 Right upper quadrant pain; E11.22 Type 2 diabetes mellitus with diabetic chronic kidney disease; I12.9 Hypertensive chronic kidney disease with stage 1 through stage 4 chronic kidney disease, or unspecified chronic kidney disease; N18.30 Chronic kidney disease, stage 3 unspecified; Z68.32 Body mass index [BMI] 32.0-32.9, adult; D64.9 Anemia, unspecified; E78.5 Hyperlipidemia, unspecified; E87.5 Hyperkalemia; D72.829 Elevated white blood cell count, unspecified; R31.9 Hematuria, unspecified; K59.00 Constipation, unspecified; R74.01 Elevation of levels of liver transaminase levels
CPT/HCPCS: 36415; 71046-TC-FY; 74176-TC; 76775-TC; 80048; 80053; 80076; 81003; 82272; 82550; 82553; 82728; 82947; 82962; 83036; 83540; 83550; 83735; 84100; 84132; 85025; 85027; 85045; 86850; 86900; 86901; 87040; 87086; 93005; 93010; 97116-GP; 97161-GP; 99285-25; C9803-CS; J1644; U0003; U0005

== ENCOUNTER 2022-02-10 11:27 | Inpatient (IN) | payer OTHER ==
[2022-02-10] MEDS ORDERED: SODIUM CHLORIDE 1,000 ML IV STA (12:53)
[2022-02-10] MEDS ORDERED: METOPROLOL TARTRATE 5 MG/5 ML VIAL IVPUSH ONE ×2 (14:00→14:27)
[2022-02-10] MEDS ORDERED: METOPROLOL TARTRATE 5 MG/5 ML VIAL ONE ×2 (14:10→14:38)
[2022-02-10 14:28] LABS: EPI CELLS 7 /uL (0-25.1); HYALINE CASTS 2 /uL (0-3.1); PH,URINE 5.5 (5.0-8.0); URINE APPEARANCE CLEAR; URINE BACTERIA 2 /uL (0-1359); URINE BILIRUBIN NEGATIVE (NEGATIVE); URINE COLOR ORANGE; URINE GLUCOSE (UA) NEGATIVE (NEGATIVE); URINE KETONE NEGATIVE (NEGATIVE); URINE LEUK ESTERASE 1+ (NEGATIVE); URINE NITRITE NEGATIVE (NEGATIVE); URINE PROTEIN 3+ (NEGATIVE); URINE RBC 300 /uL (0-23.9); URINE UROBILINOGEN 0.2 mg/dL (0.2-1.0); URINE WBC 57 /uL (0-25.8)
[2022-02-10 14:33] LABS: CHLORIDE 105 mmol/L (98-107); SODIUM 134 mmol/L (136-145)
[2022-02-10 14:35] LABS: CALCIUM 8.5 mg/dL (8.5-10.1)
[2022-02-10 14:36] LABS: ALBUMIN 2.4 g/dl (3.4-5.0); ANION GAP 7 MMOL/L (8-16); BLOOD UREA NITROGEN 60.7 mg/dL (7-18); CO2 21 mmol/L (21-32); GLUCOSE,RANDOM 260 mg/dL (74-106)
[2022-02-10 14:39] LABS: CREATININE 2.3 mg/dL (0.55-1.3); SGOT/AST 22 U/L (15-37); SGPT/ALT 53 U/L (13-61)
[2022-02-10 14:40] LABS: BILIRUBIN,TOTAL 0.3 mg/dL (0.2-1); TOT PROT 5.6 g/dl (6.4-8.2)
[2022-02-10 14:42] LABS: ALK PHOS 204 U/L (45-117)
[2022-02-10 14:44] LABS: N-TERMINAL BNP 4026.8 pg/ml (5-125)
[2022-02-10 14:51] LABS: HEMATOCRIT 28.8 % (35.4-49); HEMOGLOBIN 8.9 GM/dL (11.7-16.9); MCH 25.4 pg (25.7-33.7); MCHC 30.8 g/dl (32.0-35.9); MEAN CELL VOLUME 82.4 fl (80-96); MEAN PLT VOLUME 9.6 fl (7.5-11.1); PLATELET COUNT 255 10^3/uL (134-434); RBC 3.49 M/mm3 (4.00-5.60); RDW 22.5 % (11.9-15.9)
[2022-02-10 15:04] LABS: INR 1.17 (0.83-1.09); PROTHROMBIN TIME (PATIENT) 13.5 SEC (9.7-13.0)
[2022-02-10 15:06] LABS: ACTIVATED PTT 27.8 SECONDS (25.2-36.5)
[2022-02-10 15:40] LABS: ANISOCYTOSIS 1+; MACROCYTOSIS 0; OVALOCYTE 1+
[2022-02-10] MEDS ORDERED: HEPARIN NA (PORCINE) 5,000 UNITS/ML 1ML VIAL IVPUSH PRN ×2 (15:46)
[2022-02-10] MEDS ORDERED: HEPARIN INFUSION - 25,000 UNITS/500 ML INFUS.BAG IVPB ONE (17:30)
[2022-02-10] MEDS: HEPARIN - 25,000 UNIT in SODIUM CHLORIDE 495 ML IV SCH ×2 (17:40→22:48)
[2022-02-10 21:04] LABS: COCAINE, UR NEGATIVE (NEGATIVE); OPIATES, URI NEGATIVE (NEGATIVE); PHENCYCLIDINE,URINE NEGATIVE (NEGATIVE); URINE BARBITURATES NEGATIVE (NEGATIVE); URINE BENZODIAZEPINES NEGATIVE (NEGATIVE)
[2022-02-10 21:05] LABS: METHADONE, UR NEGATIVE (NEGATIVE); URINE AMPHETAMINES NEGATIVE (NEGATIVE)
[2022-02-10 21:47] VITALS: BMI 31.3
[2022-02-11] MEDS: METOPROLOL TARTRATE 5 MG/5 ML VIAL IVPUSH PRN ×3 (01:52→18:47)
[2022-02-11] MEDS: BENZOCAINE/MENTH/CETYLPYRD CL 1 EACH LOZENGE MM PRN ×2 (01:53→12:19)
[2022-02-11] MEDS ORDERED: ACETAMINOPHEN 1000 MG/100 ML BAG IVPB ONE (04:11)
[2022-02-11] MEDS ORDERED: MELATONIN 5 MG TABLETS PO ONE (04:11)
[2022-02-11] MEDS ORDERED: guaiFENesin 200 MG/10 ML 10 ML UNIT-DOSE CUPS PO ONE (04:11)
[2022-02-11] MEDS: ACETAMINOPHEN 325 MG TABLET (FP) PO PRN (04:33)
[2022-02-11] MEDS: INSULIN SLIDING SCALE (NOVOLOG) 1 VIAL SQ SCH ×3 (06:03→17:30)
[2022-02-11 08:09] LABS: BASO % 0.1 % (0-2.0); EOS % 0.1 % (0-4.5); HEMATOCRIT 26.4 % (35.4-49); HEMOGLOBIN 8.7 GM/dL (11.7-16.9); LYMPH % 3.9 % (8-40); MCH 26.4 pg (25.7-33.7); MCHC 32.9 g/dl (32.0-35.9); MEAN CELL VOLUME 80.2 fl (80-96); MEAN PLT VOLUME 9.2 fl (7.5-11.1); MONO % 8.5 % (3.8-10.2); NEUT % 87.4 % (42.8-82.8); PLATELET COUNT 244 10^3/uL (134-434); RBC 3.29 M/mm3 (4.00-5.60); RDW 22.6 % (11.9-15.9); WHITE BLOOD COUNT 14.9 K/mm3 (4.0-10.0)
[2022-02-11] MEDS ORDERED: TRIAMTERENE AND HCTZ - 37.5 MG/25 MG CAPSULE PO SCH (10:00)
[2022-02-11 10:11] LABS: ANION GAP 11 MMOL/L (8-16); BLOOD UREA NITROGEN 57.9 mg/dL (7-18); CALCIUM 8.1 mg/dL (8.5-10.1); CHLORIDE 111 mmol/L (98-107); CHOLESTEROL 105 mg/dL (50-200); CO2 19 mmol/L (21-32); CREATININE 2.3 mg/dL (0.55-1.3); GLUCOSE,RANDOM 46 mg/dL (74-106); HDL CHOLESTEROL 62 mg/dL (40-60); LDL CHOLESTEROL (ONLY SJRH) 31 mg/dL (5-100); MAGNESIUM 1.8 mg/dL (1.8-2.4); PHOSPHOROUS 2.4 mg/dL (2.5-4.9); SODIUM 141 mmol/L (136-145); TRIGLYCERIDES 48 mg/dL (0-150)
[2022-02-11] MEDS ORDERED: DEXTROSE 50%-WATER 25 GM/50 ML DISP.SYRIN IVPUSH ONE ×2 (10:28→17:24)
[2022-02-11] MEDS: ATORVASTATIN CA 80 MG TABLET (FP) PO SCH (10:30)
[2022-02-11] MEDS: FAMOTIDINE 20 MG TABLET PO SCH (10:30)
[2022-02-11] MEDS ORDERED: ACETAMINOPHEN 500 MG TABLET (FP) PO ONE (11:23)
[2022-02-11] MEDS ORDERED: FUROSEMIDE 40 MG/4 ML INJECTABLE VIAL IVPUSH ONE (13:48)
[2022-02-11] MEDS ORDERED: VANCOMYCIN 1 GM/200 ML PREMIX BAG IVPB ONE (15:30)
[2022-02-11] MEDS: LEVALBUTEROL HCL 0.31 MG/3 ML VIAL.NEB IH PRN ×2 (16:13→20:38)
[2022-02-11] MEDS ORDERED: CEFEPIME 2 GM in DEXTROSE 5%-WATER 100 ML IVPB SCH (17:00)
[2022-02-11] MEDS ORDERED: DEXTROSE 50%-WATER 25 GM/50 ML DISP.SYRIN IVPUSH PRN (17:30)
[2022-02-11] MEDS: HEPARIN - 25,000 UNIT in SODIUM CHLORIDE 495 ML IV SCH (18:29)
[2022-02-11] MEDS ORDERED: METOPROLOL TARTRATE 5 MG/5 ML VIAL IVPUSH ONE (20:17)
[2022-02-12] MEDS: HEPARIN - 25,000 UNIT in SODIUM CHLORIDE 495 ML IV SCH ×2 (01:42→17:13)
[2022-02-12] MEDS: METOPROLOL TARTRATE 5 MG/5 ML VIAL IVPUSH PRN (02:20)
[2022-02-12] MEDS ORDERED: metoPROLOL SUCCINATE 25 MG TAB.SR.24H (FP) PO ONE (02:36)
[2022-02-12] MEDS ORDERED: CEFEPIME 2 GM in DEXTROSE 5%-WATER 100 ML IVPB SCH (05:30)
[2022-02-12] MEDS ORDERED: dilTIAZem HCL 50 MG/10 ML - 10 ML VIAL IVPUSH ONE (05:35)
[2022-02-12] MEDS: LEVALBUTEROL HCL 0.31 MG/3 ML VIAL.NEB IH PRN ×2 (05:50→10:10)
[2022-02-12 05:55] LABS: ARTERIAL BLOOD GAS BASE EXCESS -8.6 mmol/L (-2-2); ARTERIAL BLOOD GAS PO2 62.5 mmHg (80-100); ARTERIAL BLOOD GAS pH 7.337 (7.350-7.450)
[2022-02-12 06:01] LABS: ALLENS TEST POSITIVE
[2022-02-12] MEDS: INSULIN SLIDING SCALE (NOVOLOG) 1 VIAL SQ SCH ×3 (06:12→17:18)
[2022-02-12 08:48] LABS: BLOOD UREA NITROGEN 59.4 mg/dL (7-18)
[2022-02-12 08:53] LABS: CREATININE 2.6 mg/dL (0.55-1.3); PHOSPHOROUS 3.6 mg/dL (2.5-4.9)
[2022-02-12 08:54] LABS: BILIRUBIN,TOTAL 0.6 mg/dL (0.2-1); TOT PROT 4.8 g/dl (6.4-8.2)
[2022-02-12 08:58] LABS: ALBUMIN 1.9 g/dl (3.4-5.0)
[2022-02-12] MEDS ORDERED: FUROSEMIDE 40 MG/4 ML INJECTABLE VIAL IVPUSH ONE (09:42)
[2022-02-12] MEDS: metoPROLOL SUCCINATE 25 MG TAB.SR.24H (FP) PO SCH ×2 (10:04→21:46)
[2022-02-12] MEDS: FAMOTIDINE 20 MG TABLET PO SCH (10:04)
[2022-02-12] MEDS: ATORVASTATIN CA 80 MG TABLET (FP) PO SCH (10:04)
[2022-02-12] MEDS ORDERED: VANCOMYCIN/WATER FOR INJ (PEG) 1,000 MG/200 ML BAG IVPB ONE (11:15)
[2022-02-12] MEDS ORDERED: SODIUM ZIRCONIUM CYCLOSILICATE (LOKELMA) 5 GM PACKET PO ONE (11:23)
[2022-02-12] MEDS: ACETAMINOPHEN 325 MG TABLET (FP) PO PRN (13:05)
[2022-02-12] MEDS: PIPERACILLIN/TAZOB 2.25 GM 2.25 GM in DEXTROSE 5%-WATER - 50 ML IVPB SCH ×2 (17:12→20:35)
[2022-02-12 19:47] LABS: CHLORIDE 107 mmol/L (98-107); SODIUM 138 mmol/L (136-145)
[2022-02-12 19:49] LABS: BLOOD UREA NITROGEN 65.9 mg/dL (7-18); CALCIUM 8.2 mg/dL (8.5-10.1); CO2 15 mmol/L (21-32); GLUCOSE,RANDOM 65 mg/dL (74-106)
[2022-02-12 19:53] LABS: CREATININE 2.7 mg/dL (0.55-1.3)
[2022-02-12 19:54] LABS: ANION GAP 15 MMOL/L (8-16)
[2022-02-12 23:40] LABS: BLOOD UREA NITROGEN 63.7 mg/dL (7-18); CALCIUM 8.1 mg/dL (8.5-10.1); CREATININE 2.9 mg/dL (0.55-1.3)
[2022-02-13] MEDS: PIPERACILLIN/TAZOB 2.25 GM 2.25 GM in DEXTROSE 5%-WATER - 50 ML IVPB SCH ×4 (02:13→21:09)
[2022-02-13] MEDS: INSULIN SLIDING SCALE (NOVOLOG) 1 VIAL SQ SCH ×3 (06:23→16:45)
[2022-02-13 07:55] LABS: HEMATOCRIT 23.8 % (35.4-49); HEMOGLOBIN 7.8 GM/dL (11.7-16.9); MCH 26.3 pg (25.7-33.7); MCHC 32.8 g/dl (32.0-35.9); MEAN CELL VOLUME 80.4 fl (80-96); MEAN PLT VOLUME 8.8 fl (7.5-11.1); PLATELET COUNT 254 10^3/uL (134-434); RBC 2.97 M/mm3 (4.00-5.60); RDW 22.5 % (11.9-15.9); WHITE BLOOD COUNT 11.9 K/mm3 (4.0-10.0)
[2022-02-13] MEDS: LEVALBUTEROL HCL 0.31 MG/3 ML VIAL.NEB IH PRN (08:45)
[2022-02-13 08:50] LABS: ALBUMIN 1.8 g/dl (3.4-5.0); ALK PHOS 145 U/L (45-117); ANION GAP 12 MMOL/L (8-16); BILIRUBIN,TOTAL 0.7 mg/dL (0.2-1); BLOOD UREA NITROGEN 68.7 mg/dL (7-18); CHLORIDE 107 mmol/L (98-107); CO2 20 mmol/L (21-32); CREATININE 3.2 mg/dL (0.55-1.3); GLUCOSE,RANDOM 44 mg/dL (74-106); MAGNESIUM 2.1 mg/dL (1.8-2.4); PHOSPHOROUS 4.6 mg/dL (2.5-4.9); SGOT/AST 32 U/L (15-37); SGPT/ALT 40 U/L (13-61); SODIUM 139 mmol/L (136-145)
[2022-02-13 09:32] LABS: ANISOCYTOSIS 1+; MACROCYTOSIS 0
[2022-02-13] MEDS ORDERED: DEXTROSE 5%-NORMAL SALINE 500 ML IV ONE (09:34)
[2022-02-13] MEDS: ATORVASTATIN CA 80 MG TABLET (FP) PO SCH (09:39)
[2022-02-13] MEDS: FAMOTIDINE 20 MG TABLET PO SCH (09:39)
[2022-02-13] MEDS: metoPROLOL SUCCINATE 25 MG TAB.SR.24H (FP) PO SCH ×2 (09:40→21:09)
[2022-02-13] MEDS: SODIUM ZIRCONIUM CYCLOSILICATE (LOKELMA) 5 GM PACKET PO SCH (09:41)
[2022-02-13] MEDS: ACETAMINOPHEN 325 MG TABLET (FP) PO PRN (12:09)
[2022-02-13] MEDS: methylPREDNISolone NA SUCC 40 MG/1 ML VIAL IVPUSH SCH ×3 (12:14→21:08)
[2022-02-13 16:14] LABS: BLOOD UREA NITROGEN 69.7 mg/dL (7-18); CALCIUM 7.4 mg/dL (8.5-10.1); CREATININE 3.2 mg/dL (0.55-1.3)
[2022-02-13] MEDS ORDERED: ACETAMINOPHEN 1000 MG/100 ML BAG IVPB ONE (17:00)
[2022-02-13] MEDS: HEPARIN - 25,000 UNIT in SODIUM CHLORIDE 495 ML IV SCH (17:40)
[2022-02-13 17:41] LABS: HEMATOCRIT 25.4 % (35.4-49); MCH 26.2 pg (25.7-33.7); MCHC 31.7 g/dl (32.0-35.9); MEAN CELL VOLUME 82.6 fl (80-96); MEAN PLT VOLUME 8.6 fl (7.5-11.1); PLATELET COUNT 249 10^3/uL (134-434); RBC 3.07 M/mm3 (4.00-5.60); RDW 22.9 % (11.9-15.9); WHITE BLOOD COUNT 9.7 K/mm3 (4.0-10.0)
[2022-02-14] MEDS: methylPREDNISolone NA SUCC 40 MG/1 ML VIAL IVPUSH SCH ×4 (03:27→21:22)
[2022-02-14] MEDS: PIPERACILLIN/TAZOB 2.25 GM 2.25 GM in DEXTROSE 5%-WATER - 50 ML IVPB SCH ×4 (03:27→21:22)
[2022-02-14] MEDS: ACETAMINOPHEN 325 MG TABLET (FP) PO PRN ×2 (05:55→15:13)
[2022-02-14] MEDS: INSULIN SLIDING SCALE (NOVOLOG) 1 VIAL SQ SCH ×3 (07:33→17:43)
[2022-02-14 08:29] LABS: HEMATOCRIT 23.2 % (35.4-49); HEMOGLOBIN 7.6 GM/dL (11.7-16.9); MCH 26.5 pg (25.7-33.7); MCHC 32.7 g/dl (32.0-35.9); MEAN CELL VOLUME 81.1 fl (80-96); MEAN PLT VOLUME 8.2 fl (7.5-11.1); PLATELET COUNT 259 10^3/uL (134-434); RBC 2.86 M/mm3 (4.00-5.60); RDW 22.6 % (11.9-15.9); WHITE BLOOD COUNT 10.6 K/mm3 (4.0-10.0)
[2022-02-14 08:51] LABS: ALBUMIN 1.6 g/dl (3.4-5.0); BLOOD UREA NITROGEN 75.2 mg/dL (7-18); CALCIUM 7.8 mg/dL (8.5-10.1); MAGNESIUM 2.3 mg/dL (1.8-2.4)
[2022-02-14 08:54] LABS: CREATININE 3.7 mg/dL (0.55-1.3); PHOSPHOROUS 6.3 mg/dL (2.5-4.9)
[2022-02-14 08:55] LABS: TOT PROT 5.6 g/dl (6.4-8.2)
[2022-02-14] MEDS ORDERED: DOCUSATE SODIUM 100 MG CAPSULE (FP) PO ONE (08:57)
[2022-02-14 08:58] LABS: BILIRUBIN,TOTAL 0.5 mg/dL (0.2-1)
[2022-02-14] MEDS: metoPROLOL SUCCINATE 25 MG TAB.SR.24H (FP) PO SCH ×2 (09:42→21:22)
[2022-02-14] MEDS: SODIUM ZIRCONIUM CYCLOSILICATE (LOKELMA) 5 GM PACKET PO SCH (09:42)
[2022-02-14] MEDS: ATORVASTATIN CA 80 MG TABLET (FP) PO SCH (09:42)
[2022-02-14] MEDS: FAMOTIDINE 20 MG TABLET PO SCH (09:44)
[2022-02-14] MEDS: HEPARIN - 25,000 UNIT in SODIUM CHLORIDE 495 ML IV SCH (10:00)
[2022-02-14 10:23] LABS: ANISOCYTOSIS 2+; MACROCYTOSIS 0
[2022-02-14] MEDS ORDERED: ACETAMINOPHEN 1000 MG/100 ML BAG IVPB ONE (10:38)
[2022-02-14] MEDS: FUROSEMIDE 40 MG/4 ML INJECTABLE VIAL IVPUSH SCH (12:41)
[2022-02-14] MEDS: SENNOSIDES 8.6MG TABLET (FP) PO SCH (21:36)
[2022-02-15] MEDS ORDERED: PIPERACILLIN/TAZOBACTAM 2.25 GM VIAL IVPB ONE (03:39)
[2022-02-15] MEDS: PIPERACILLIN/TAZOB 2.25 GM 2.25 GM in DEXTROSE 5%-WATER - 50 ML IVPB SCH ×4 (03:46→22:04)
[2022-02-15] MEDS: methylPREDNISolone NA SUCC 40 MG/1 ML VIAL IVPUSH SCH ×4 (03:46→22:03)
[2022-02-15] MEDS: INSULIN SLIDING SCALE (NOVOLOG) 1 VIAL SQ SCH ×3 (06:43→17:39)
[2022-02-15 08:41] LABS: HEMATOCRIT 24.1 % (35.4-49); HEMOGLOBIN 7.6 GM/dL (11.7-16.9); MCHC 31.5 g/dl (32.0-35.9); MEAN CELL VOLUME 79.2 fl (80-96); MEAN PLT VOLUME 8.7 fl (7.5-11.1); PLATELET COUNT 255 10^3/uL (134-434); RBC 3.04 M/mm3 (4.00-5.60); RDW 22.4 % (11.9-15.9)
[2022-02-15] MEDS: FUROSEMIDE 40 MG/4 ML INJECTABLE VIAL IVPUSH SCH (10:12)
[2022-02-15] MEDS: SODIUM ZIRCONIUM CYCLOSILICATE (LOKELMA) 5 GM PACKET PO SCH (10:13)
[2022-02-15] MEDS: metoPROLOL SUCCINATE 25 MG TAB.SR.24H (FP) PO SCH ×3 (10:13→22:06)
[2022-02-15] MEDS: FAMOTIDINE 20 MG TABLET PO SCH (10:13)
[2022-02-15] MEDS: ATORVASTATIN CA 80 MG TABLET (FP) PO SCH (10:13)
[2022-02-15 10:24] LABS: ANISOCYTOSIS 1+; MACROCYTOSIS 0
[2022-02-15] MEDS ORDERED: LEVALBUTEROL HCL 0.31 MG/3 ML VIAL.NEB IH PRN (10:58)
[2022-02-15 11:12] LABS: ALBUMIN 1.7 g/dl (3.4-5.0); BILIRUBIN,TOTAL 0.4 mg/dL (0.2-1); BLOOD UREA NITROGEN 86.7 mg/dL (7-18); CALCIUM 7.1 mg/dL (8.5-10.1); CREATININE 4.2 mg/dL (0.55-1.3); MAGNESIUM 2.4 mg/dL (1.8-2.4); PHOSPHOROUS 6.8 mg/dL (2.5-4.9); TOT PROT 5.2 g/dl (6.4-8.2)
[2022-02-15] MEDS: ALBUTEROL SO4 2.5/IPRATROPIUM 0.5 INH SOL 3 ML VIAL.NEB. NEB SCH ×3 (12:36→20:40)
[2022-02-15] MEDS: ACETAMINOPHEN 325 MG TABLET (FP) PO PRN ×2 (13:17→23:32)
[2022-02-15] MEDS: SODIUM BICARBONATE 650 MG TABLET PO SCH ×2 (14:13→22:05)
[2022-02-15] MEDS: METOPROLOL TARTRATE 5 MG/5 ML VIAL IVPUSH PRN (15:37)
[2022-02-15] MEDS: HEPARIN - 25,000 UNIT in SODIUM CHLORIDE 495 ML IV SCH (17:19)
[2022-02-15] MEDS: SENNOSIDES 8.6MG TABLET (FP) PO SCH (22:05)
[2022-02-16] MEDS: PIPERACILLIN/TAZOB 2.25 GM 2.25 GM in DEXTROSE 5%-WATER - 50 ML IVPB SCH ×4 (02:48→17:57)
[2022-02-16] MEDS: methylPREDNISolone NA SUCC 40 MG/1 ML VIAL IVPUSH SCH ×3 (02:48→17:57)
[2022-02-16] MEDS: INSULIN SLIDING SCALE (NOVOLOG) 1 VIAL SQ SCH ×3 (06:04→17:57)
[2022-02-16 08:39] LABS: HEMATOCRIT 23.7 % (35.4-49); HEMOGLOBIN 7.7 GM/dL (11.7-16.9); MCH 26.1 pg (25.7-33.7); MCHC 32.6 g/dl (32.0-35.9); MEAN CELL VOLUME 79.9 fl (80-96); MEAN PLT VOLUME 8.7 fl (7.5-11.1); PLATELET COUNT 236 10^3/uL (134-434); RBC 2.97 M/mm3 (4.00-5.60); RDW 22.4 % (11.9-15.9); WHITE BLOOD COUNT 12.8 K/mm3 (4.0-10.0)
[2022-02-16] MEDS: ALBUTEROL SO4 2.5/IPRATROPIUM 0.5 INH SOL 3 ML VIAL.NEB. NEB SCH ×2 (08:47→13:00)
[2022-02-16] MEDS: SODIUM BICARBONATE 650 MG TABLET PO SCH ×2 (09:41→23:22)
[2022-02-16] MEDS: metoPROLOL SUCCINATE 25 MG TAB.SR.24H (FP) PO SCH ×2 (09:41→22:22)
[2022-02-16] MEDS: ATORVASTATIN CA 80 MG TABLET (FP) PO SCH (09:41)
[2022-02-16] MEDS: FAMOTIDINE 20 MG TABLET PO SCH (09:41)
[2022-02-16] MEDS: SODIUM ZIRCONIUM CYCLOSILICATE (LOKELMA) 5 GM PACKET PO SCH (09:42)
[2022-02-16 09:52] LABS: ALBUMIN 1.8 g/dl (3.4-5.0); BILIRUBIN,TOTAL 0.4 mg/dL (0.2-1); BLOOD UREA NITROGEN 103.9 mg/dL (7-18); CALCIUM 7.2 mg/dL (8.5-10.1); MAGNESIUM 2.4 mg/dL (1.8-2.4); PHOSPHOROUS 8.7 mg/dL (2.5-4.9); TOT PROT 5.4 g/dl (6.4-8.2)
[2022-02-16 10:57] LABS: ANISOCYTOSIS 2+; MACROCYTOSIS 0; OVALOCYTE 1+
[2022-02-16] MEDS: SODIUM BICARBONATE 8.4% 50 MEQ/50 ML DISP.SYRIN IVPUSH SCH ×3 (12:00→23:38)
[2022-02-16 13:47] LABS: ARTERIAL BLD GAS O2 SATURATION 98.7 % (95-98); ARTERIAL BLOOD GAS BASE EXCESS -12.5 mmol/L (-2-2); ARTERIAL BLOOD GAS pH 7.335 (7.350-7.450)
[2022-02-16 13:50] LABS: ALLENS TEST POSITIVE
[2022-02-16] MEDS: ACETYLCYSTEINE 20% 200MG/ML 4 ML VIAL *FOR ORAL / INH USE ONLY NEB SCH ×2 (16:48→20:05)
[2022-02-16] MEDS: ALBUTEROL SO4 0.083% IH SOL 2.5 MG/3 ML VIAL.NEB. NEB SCH ×2 (16:48→20:05)
[2022-02-16] MEDS: HEPARIN - 25,000 UNIT in SODIUM CHLORIDE 495 ML IV SCH (17:59)
[2022-02-16] MEDS: METOPROLOL TARTRATE 5 MG/5 ML VIAL IVPUSH PRN (18:21)
[2022-02-16] MEDS: SENNOSIDES 8.6MG TABLET (FP) PO SCH (22:21)
[2022-02-16] MEDS ORDERED: SODIUM BICARBONATE 8.4% 50 MEQ/50 ML DISP.SYRIN IVPUSH SCH (23:30)
[2022-02-17] MEDS: PIPERACILLIN/TAZOB 2.25 GM 2.25 GM in DEXTROSE 5%-WATER - 50 ML IVPB SCH ×2 (02:25→09:47)
[2022-02-17] MEDS: methylPREDNISolone NA SUCC 40 MG/1 ML VIAL IVPUSH SCH ×3 (02:25→17:47)
[2022-02-17] MEDS: INSULIN SLIDING SCALE (NOVOLOG) 1 VIAL SQ SCH ×3 (06:43→17:47)
[2022-02-17 08:10] LABS: HEMATOCRIT 25.1 % (35.4-49); HEMOGLOBIN 7.9 GM/dL (11.7-16.9); MCH 24.9 pg (25.7-33.7); MCHC 31.6 g/dl (32.0-35.9); MEAN CELL VOLUME 78.7 fl (80-96); MEAN PLT VOLUME 8.9 fl (7.5-11.1); PLATELET COUNT 211 10^3/uL (134-434); RBC 3.19 M/mm3 (4.00-5.60); RDW 22.6 % (11.9-15.9); WHITE BLOOD COUNT 17.7 K/mm3 (4.0-10.0)
[2022-02-17] MEDS: ALBUTEROL SO4 0.083% IH SOL 2.5 MG/3 ML VIAL.NEB. NEB SCH ×4 (08:20→20:30)
[2022-02-17] MEDS: ACETYLCYSTEINE 20% 200MG/ML 4 ML VIAL *FOR ORAL / INH USE ONLY NEB SCH ×4 (08:20→20:30)
[2022-02-17 09:13] LABS: ANISOCYTOSIS 2+; MACROCYTOSIS 1+
[2022-02-17 09:23] LABS: ALBUMIN 1.7 g/dl (3.4-5.0); ANION GAP 20 MMOL/L (8-16); BLOOD UREA NITROGEN 114.8 mg/dL (7-18); CALCIUM 7.3 mg/dL (8.5-10.1); CHLORIDE 102 mmol/L (98-107); CO2 17 mmol/L (21-32); GLUCOSE,RANDOM 223 mg/dL (74-106); MAGNESIUM 2.5 mg/dL (1.8-2.4); SODIUM 138 mmol/L (136-145)
[2022-02-17 09:33] LABS: ALK PHOS 143 U/L (45-117); BILIRUBIN,TOTAL 0.4 mg/dL (0.2-1); CREATININE 5.6 mg/dL (0.55-1.3); SGOT/AST 30 U/L (15-37); SGPT/ALT 37 U/L (13-61); TOT PROT 5.4 g/dl (6.4-8.2)
[2022-02-17] MEDS: ATORVASTATIN CA 80 MG TABLET (FP) PO SCH (09:47)
[2022-02-17] MEDS: FAMOTIDINE 20 MG TABLET PO SCH (09:47)
[2022-02-17] MEDS: SODIUM BICARBONATE 650 MG TABLET PO SCH ×2 (09:47→22:23)
[2022-02-17] MEDS: SODIUM ZIRCONIUM CYCLOSILICATE (LOKELMA) 5 GM PACKET PO SCH (09:47)
[2022-02-17] MEDS: metoPROLOL SUCCINATE 25 MG TAB.SR.24H (FP) PO SCH ×2 (09:48→22:23)
[2022-02-17] MEDS ORDERED: CEFEPIME 1 GM in DEXTROSE 5%-WATER 100 ML IVPB ONE (14:24)
[2022-02-17] MEDS: CLINDAMYCIN 600MG PREMIX IVPB 600 MG/50 ML BAG IVPB SCH (17:47)
[2022-02-17] MEDS: SENNOSIDES 8.6MG TABLET (FP) PO SCH (22:23)
[2022-02-18] MEDS: methylPREDNISolone NA SUCC 40 MG/1 ML VIAL IVPUSH SCH ×3 (02:43→14:57)
[2022-02-18] MEDS: CLINDAMYCIN 600MG PREMIX IVPB 600 MG/50 ML BAG IVPB SCH ×3 (02:43→17:17)
[2022-02-18] MEDS: INSULIN SLIDING SCALE (NOVOLOG) 1 VIAL SQ SCH ×3 (06:45→17:16)
[2022-02-18] MEDS: ALBUTEROL SO4 0.083% IH SOL 2.5 MG/3 ML VIAL.NEB. NEB SCH ×4 (08:29→20:50)
[2022-02-18] MEDS: ACETYLCYSTEINE 20% 200MG/ML 4 ML VIAL *FOR ORAL / INH USE ONLY NEB SCH ×4 (08:29→20:50)
[2022-02-18 08:31] LABS: HEMATOCRIT 23.2 % (35.4-49); HEMOGLOBIN 7.5 GM/dL (11.7-16.9); MCH 25.7 pg (25.7-33.7); MCHC 32.4 g/dl (32.0-35.9); MEAN CELL VOLUME 79.4 fl (80-96); MEAN PLT VOLUME 9.1 fl (7.5-11.1); PLATELET COUNT 172 10^3/uL (134-434); RBC 2.92 M/mm3 (4.00-5.60); RDW 22.7 % (11.9-15.9); WHITE BLOOD COUNT 24.3 K/mm3 (4.0-10.0)
[2022-02-18] MEDS: CALCIUM ACETATE 667 MG CAPSULE (FP) PO SCH ×3 (09:00→17:17)
[2022-02-18 09:23] LABS: ANISOCYTOSIS 2+; MACROCYTOSIS 0; OVALOCYTE 1+
[2022-02-18 09:49] LABS: ALBUMIN 1.7 g/dl (3.4-5.0); ALK PHOS 147 U/L (45-117); ANION GAP 22 MMOL/L (8-16); BILIRUBIN,TOTAL 0.5 mg/dL (0.2-1); CALCIUM 7.7 mg/dL (8.5-10.1); CHLORIDE 101 mmol/L (98-107); CO2 14 mmol/L (21-32); CREATININE 6.4 mg/dL (0.55-1.3); GLUCOSE,RANDOM 319 mg/dL (74-106); MAGNESIUM 2.7 mg/dL (1.8-2.4); PHOSPHOROUS 10.5 mg/dL (2.5-4.9); SGOT/AST 0 U/L (15-37); SGPT/ALT 41 U/L (13-61); SODIUM 137 mmol/L (136-145); TOT PROT 5.5 g/dl (6.4-8.2)
[2022-02-18] MEDS: ATORVASTATIN CA 80 MG TABLET (FP) PO SCH (11:02)
[2022-02-18] MEDS: SODIUM BICARBONATE 650 MG TABLET PO SCH ×3 (11:02→21:05)
[2022-02-18] MEDS: FAMOTIDINE 20 MG TABLET PO SCH (11:02)
[2022-02-18] MEDS: metoPROLOL SUCCINATE 25 MG TAB.SR.24H (FP) PO SCH ×2 (11:02→21:05)
[2022-02-18] MEDS: SODIUM ZIRCONIUM CYCLOSILICATE (LOKELMA) 5 GM PACKET PO SCH (11:02)
[2022-02-18] MEDS ORDERED: WATER IVPB SCH (12:22)
[2022-02-18] MEDS ORDERED: DEXTROSE 5% IVPB SCH (12:22)
[2022-02-18] MEDS ORDERED: CEFEPIME IVPB SCH (12:22)
[2022-02-18] MEDS: CEFEPIME 1 GM in DEXTROSE 5%-WATER 100 ML IVPB SCH (14:59)
[2022-02-18] MEDS: SENNOSIDES 8.6MG TABLET (FP) PO SCH (21:05)
[2022-02-19] MEDS: CLINDAMYCIN 600MG PREMIX IVPB 600 MG/50 ML BAG IVPB SCH ×2 (02:48→10:12)
[2022-02-19] MEDS: SODIUM BICARBONATE 650 MG TABLET PO SCH (06:44)
[2022-02-19] MEDS: INSULIN SLIDING SCALE (NOVOLOG) 1 VIAL SQ SCH ×2 (06:45→11:54)
[2022-02-19 08:06] LABS: HEMATOCRIT 23.7 % (35.4-49); HEMOGLOBIN 7.3 GM/dL (11.7-16.9); MCH 24.7 pg (25.7-33.7); MCHC 30.7 g/dl (32.0-35.9); MEAN CELL VOLUME 80.4 fl (80-96); MEAN PLT VOLUME 10.3 fl (7.5-11.1); PLATELET COUNT 161 10^3/uL (134-434); RBC 2.94 M/mm3 (4.00-5.60); RDW 22.8 % (11.9-15.9); WHITE BLOOD COUNT 27.9 K/mm3 (4.0-10.0)
[2022-02-19 08:17] LABS: CHLORIDE 98 mmol/L (98-107); SODIUM 135 mmol/L (136-145)
[2022-02-19 08:21] LABS: ALBUMIN 1.6 g/dl (3.4-5.0); ANION GAP 22 MMOL/L (8-16); CALCIUM 7.8 mg/dL (8.5-10.1); CO2 14 mmol/L (21-32); MAGNESIUM 2.8 mg/dL (1.8-2.4)
[2022-02-19 08:24] LABS: SGOT/AST 223 U/L (15-37); SGPT/ALT 160 U/L (13-61)
[2022-02-19] MEDS: ALBUTEROL SO4 0.083% IH SOL 2.5 MG/3 ML VIAL.NEB. NEB SCH ×4 (08:25→20:57)
[2022-02-19] MEDS: ACETYLCYSTEINE 20% 200MG/ML 4 ML VIAL *FOR ORAL / INH USE ONLY NEB SCH ×4 (08:25→20:56)
[2022-02-19 08:27] LABS: BILIRUBIN,TOTAL 0.6 mg/dL (0.2-1); TOT PROT 5.3 g/dl (6.4-8.2)
[2022-02-19 09:05] LABS: ANISOCYTOSIS 2+; MACROCYTOSIS 0; OVALOCYTE 1+
[2022-02-19] MEDS ORDERED: CEFEPIME HCL 1 GM VIAL (RESTRICTED TO ID) ONE (09:58)
[2022-02-19] MEDS: CEFEPIME 1 GM in DEXTROSE 5%-WATER 100 ML IVPB SCH (10:12)
[2022-02-19] MEDS: SODIUM ZIRCONIUM CYCLOSILICATE (LOKELMA) 5 GM PACKET PO SCH (10:25)
[2022-02-19] MEDS: ATORVASTATIN CA 80 MG TABLET (FP) PO SCH (10:25)
[2022-02-19] MEDS: CALCIUM ACETATE 667 MG CAPSULE (FP) PO SCH ×2 (10:25→11:55)
[2022-02-19] MEDS: FAMOTIDINE 20 MG TABLET PO SCH (10:25)
[2022-02-19] MEDS: metoPROLOL SUCCINATE 25 MG TAB.SR.24H (FP) PO SCH (10:26)
[2022-02-19] MEDS: methylPREDNISolone NA SUCC 40 MG/1 ML VIAL IVPUSH SCH ×3 (11:56→23:32)
[2022-02-19 12:39] LABS: BLOOD UREA NITROGEN 149.7 mg/dL (7-18); GLUCOSE,RANDOM 482 mg/dL (74-106); PHOSPHOROUS 10.8 mg/dL (2.5-4.9)
[2022-02-19 13:03] LABS: ALK PHOS 159 U/L (45-117)
[2022-02-19] MEDS: MORPHINE SULFATE/0.9% NACL/PF 100 MG/100 ML BAG IVPB SCH ×2 (13:50→14:26)
[2022-02-20 01:08] VITALS: BP 84/53; PULSE 85; TEMP 97.4
[2022-02-20] MEDS: methylPREDNISolone NA SUCC 40 MG/1 ML VIAL IVPUSH SCH ×2 (01:55→12:10)
[2022-02-20] MEDS: ACETYLCYSTEINE 20% 200MG/ML 4 ML VIAL *FOR ORAL / INH USE ONLY NEB SCH ×2 (08:49→11:56)
[2022-02-20] MEDS: ALBUTEROL SO4 0.083% IH SOL 2.5 MG/3 ML VIAL.NEB. NEB SCH ×2 (08:49→11:56)
[2022-02-20] MEDS ORDERED: SCOPOLAMINE HYDROBROMIDE 1 PATCH PATCH.TD72 TD SCH (12:00)
[2022-02-20 12:18] VITALS: RESP 18
== END 2022-02-20 18:02 | disposition expired | DRG 871 ==
LOC: JER 11:27 → JERBED 15:40 → J4W 21:23
PROVIDERS: ATTEND Internal Medicine
DX: A41.9 Sepsis, unspecified organism (principal); J18.9 Pneumonia, unspecified organism; G93.41 Metabolic encephalopathy; J96.01 Acute respiratory failure with hypoxia; N18.4 Chronic kidney disease, stage 4 (severe); I31.39 Other pericardial effusion (noninflammatory); C64.9 Malignant neoplasm of unspecified kidney, except renal pelvis; C78.00 Secondary malignant neoplasm of unspecified lung; N39.0 Urinary tract infection, site not specified; N17.9 Acute kidney failure, unspecified; E87.20 Acidosis, unspecified; J90 Pleural effusion, not elsewhere classified; I24.8 Other forms of acute ischemic heart disease; I48.91 Unspecified atrial fibrillation; E86.0 Dehydration; R59.1 Generalized enlarged lymph nodes; E78.5 Hyperlipidemia, unspecified; N40.0 Benign prostatic hyperplasia without lower urinary tract symptoms; E78.00 Pure hypercholesterolemia, unspecified; I12.9 Hypertensive chronic kidney disease with stage 1 through stage 4 chronic kidney disease, or unspecified chronic kidney disease; E11.22 Type 2 diabetes mellitus with diabetic chronic kidney disease; D64.9 Anemia, unspecified; E87.5 Hyperkalemia; D72.829 Elevated white blood cell count, unspecified; R41.82 Altered mental status, unspecified; Z66 Do not resuscitate
CPT/HCPCS: 0241U-QW; 36415; 36600; 71045-TC-FY; 71250-TC; 80048; 80053; 80061; 80307; 81003; 82140; 82533; 82803; 82962; 83605; 83735; 83880; 84100; 84443; 84484; 85025; 85027; 85610; 85730; 86850; 86900; 86901; 87040; 87081; 87086; 93005; 93010; 93306-TC; 93970-TC; 94640; 99291; G0480; J1644